=== PATIENT | male | born 1975 | race Caucasian/White ===

== ENCOUNTER 2017-04-12 07:20 | Inpatient (IN) | payer BC ==
[~2017-04-12] VITALS: Ht 185.4 cm; Wt 99.8 kg
[~2017-04-12 07:20] MED LIST: Z.0.PREVACID30 MG PO
[2017-04-12] MEDS ORDERED: SODIUM CHLORIDE 0.9% 1000ML 1,000 ML IV STA (07:59)
[2017-04-12 08:24] LABS: BASOPHILS # (AUTO) 0.1 (0.0-0.1); BASOPHILS % 0.6 % (0.0-1.0); HEMATOCRIT 40.6 % (38.2-49.6); HEMOGLOBIN 13.4 g/dL (14.0-18.0); LYMPHOCYTES # (AUTO) 0.3 (1.0-3.2); LYMPHOCYTES % 1.3 % (18.0-39.1); MEAN CORPUSCULAR HEMOGLOBIN 28.5 pg (28-32); MEAN CORPUSCULAR VOLUME 86.4 fL (81-99); MONOCYTES # (AUTO) 0.9 (0.2-0.8); MONOCYTES % 3.9 % (4.4-11.3); NEUTROPHILS # (AUTO) 21.9 (2.1-6.9); NEUTROPHILS % 93.1 % (38.7-80.0); PLATELET COUNT 264 x10e3/uL (140-360)
[2017-04-12 08:39] LABS: ANION GAP 13.8 mmol/L (8-16); BLOOD UREA NITROGEN 15 mg/dL (7-26); BUN/CREATININE RATIO 16 (6-25); CALCIUM 8.3 mg/dL (8.4-10.2); CARBON DIOXIDE 26 mmol/L (22-29); CHLORIDE 97 mmol/L (98-107); CREATININE, SERUM 0.91 mg/dL (0.72-1.25); EST GLOMERULAR FILTRATION RATE > 60 ML/MIN (60-); GLUCOSE 110 mg/dL (74-118); POTASSIUM 3.8 mmol/L (3.5-5.1); SODIUM 133 mmol/L (136-145)
--- NOTE | 2017-04-12 08:54 | Diagnostic Imaging Report ---
PROCEDURE: X-RAY CHEST, TWO VIEWS COMPARISON: None. INDICATIONS: FLULIKE SYMPTOMS FINDINGS: LUNGS: Patchy left perihilar opacity and a right middle lobe opacity compatible with multifocal pneumonia. PLEURA: No effusions or pneumothorax. HEART \T\ MEDIASTINUM: The heart is within normal size-limits. BONES \T\ SOFT TISSUES: No acute findings. CONCLUSION: Multifocal pneumonia. Edson Morrow D.O. Dictated by: Edson Morrow D.O. on 04/12/2017 at 9:02 Electronically approved by: Edson Morrow D.O. on 04/12/2017 at 9:02
[2017-04-12 09:07] LABS: STREPTOCOCCUS GRP A ANTIGEN POSITIVE (NEGATIVE)
[2017-04-12 09:23] LABS: INFLUENZAE A&B ANTIGEN (RAPID) NEGATIVE (NEGATIVE)
[2017-04-12] MEDS: AZITHROMYCIN 500MG/SOD CHL 0.9% 250ML BAG IV SCH (09:38)
[2017-04-12] MEDS: CEFTRIAXONE SOD 1 GM VIAL IV SCH ×2 (09:38→21:59)
[2017-04-12] MEDS: SODIUM CHLORIDE 0.9% 1000ML 1,000 ML IV SCH ×2 (09:38→20:21)
[2017-04-12 09:58] LABS: BAND NEUTROPHILS % (MANUAL) 27 %; LYMPHOCYTES % (MANUAL) 1 % (19-48); METAMYELOCYTES % (MANUAL) 2 % (0-0); MONOCYTES % (MANUAL) 3 % (3.4-9.0); NEUTROPHILS % (MANUAL) 67 % (40-74)
[2017-04-12 09:59] LABS: ANISOCYTOSIS SLIGHT; PLATELET ESTIMATE ADEQUATE; PLATELET MORPHOLOGY COMMENT NORMAL; RBC MORPHOLOGY COMMENT NORMAL
[2017-04-12] MEDS ORDERED: ACETAMINOPHEN 1000 MG/100 ML IV STA ×2 (10:15→10:59)
[2017-04-12] MEDS ORDERED: BENZONATATE 100 MG CAP PO PRN (10:45)
[2017-04-12] MEDS: OSELTAMIVIR PHOSPHATE 75 MG CAP PO SCH ×2 (10:59→17:00)
[2017-04-12] MEDS: ALBUTEROL/IPRATROPIUM 3 ML NEB NEB PRN ×2 (11:12→17:00)
[2017-04-12] MEDS ORDERED: ACETAMINOPHEN 1000 MG/100 ML IV PRN (12:45)
[2017-04-12] MEDS: FAMOTIDINE 20 MG TAB PO SCH (16:30)
[2017-04-12 20:00] VITALS: BP 136/74
[2017-04-13] VITALS: BP 124/69
[2017-04-13] MEDS: ALBUTEROL/IPRATROPIUM 3 ML NEB NEB PRN ×3 (00:30→15:15)
[2017-04-13 04:00] VITALS: BP 139/83
[2017-04-13] MEDS: SODIUM CHLORIDE 0.9% 1000ML 1,000 ML IV SCH ×3 (05:43→21:49)
[2017-04-13 06:52] LABS: BASOPHILS # (AUTO) 0.1 (0.0-0.1); BASOPHILS % 0.3 % (0.0-1.0); EOSINOPHILS # (AUTO) 0.2 (0.0-0.4); EOSINOPHILS % 0.8 % (0.0-6.0); HEMATOCRIT 38.8 % (38.2-49.6); HEMOGLOBIN 12.8 g/dL (14.0-18.0); LYMPHOCYTES # (AUTO) 1.1 (1.0-3.2); LYMPHOCYTES % 4.5 % (18.0-39.1); MEAN CORPUSCULAR HEMOGLOBIN 28.7 pg (28-32); MONOCYTES % 4.2 % (4.4-11.3); NEUTROPHILS # (AUTO) 20.7 (2.1-6.9); NEUTROPHILS % 89.2 % (38.7-80.0); PLATELET COUNT 270 x10e3/uL (140-360); RED BLOOD COUNT 4.46 x10e6/uL (4.3-5.7); RED CELL DISTRIBUTION WIDTH 14.4 % (11.7-14.4)
[2017-04-13 07:17] LABS: ANION GAP 13.8 mmol/L (8-16); BLOOD UREA NITROGEN 12 mg/dL (7-26); BUN/CREATININE RATIO 15 (6-25); CALCIUM 8.5 mg/dL (8.4-10.2); CARBON DIOXIDE 24 mmol/L (22-29); CHLORIDE 103 mmol/L (98-107); CREATININE, SERUM 0.81 mg/dL (0.72-1.25); EST GLOMERULAR FILTRATION RATE > 60 ML/MIN (60-); GLUCOSE 100 mg/dL (74-118); POTASSIUM 3.8 mmol/L (3.5-5.1); SODIUM 137 mmol/L (136-145)
[2017-04-13 07:59] VITALS: BP 127/71
[2017-04-13] MEDS: OSELTAMIVIR PHOSPHATE 75 MG CAP PO SCH ×2 (08:30→17:00)
[2017-04-13] MEDS: CEFTRIAXONE SOD 1 GM VIAL IV SCH ×2 (08:30→21:15)
[2017-04-13] MEDS: FAMOTIDINE 20 MG TAB PO SCH ×2 (08:30→16:30)
[2017-04-13] MEDS: AZITHROMYCIN 500MG/SOD CHL 0.9% 250ML BAG IV SCH (10:00)
[2017-04-13 12:00] VITALS: BP 116/67
[2017-04-13 16:00] VITALS: BP 106/61
[2017-04-13 20:00] VITALS: BP 125/80
[2017-04-13] MEDS: ACETAMINOPHEN 325 MG TAB PO PRN (20:00)
[2017-04-14] VITALS: BP 121/72
[2017-04-14 04:00] VITALS: BP 140/87
[2017-04-14] MEDS: ACETAMINOPHEN 325 MG TAB PO PRN ×2 (06:17→20:04)
--- NOTE | 2017-04-14 07:04 | Diagnostic Imaging Report ---
EXAM: CHEST 2 VIEWS, PA and lateral DATE: 04/14/2017 7:00 AM Time stamp on exam: 0628 hours INDICATION: Flu, fever, weakness COMPARISON: PA and lateral view of the chest April 12, 2017 FINDINGS: LINES/TUBES: None LUNGS: Right middle lobe, lingular, and bilateral lower lobe consolidations. PLEURA: No effusions or pneumothorax. HEART AND MEDIASTINUM: Normal size and contour. BONES AND SOFT TISSUES: No acute findings. IMPRESSION: Stable multifocal pneumonia. Signed by: Dr. Salena Barron M.D. on 04/14/2017 7:00 AM
[2017-04-14 07:13] LABS: BASOPHILS # (AUTO) 0.1 (0.0-0.1); BASOPHILS % 0.3 % (0.0-1.0); EOSINOPHILS # (AUTO) 0.3 (0.0-0.4); EOSINOPHILS % 1.7 % (0.0-6.0); HEMATOCRIT 40.2 % (38.2-49.6); HEMOGLOBIN 13.2 g/dL (14.0-18.0); LYMPHOCYTES # (AUTO) 1.6 (1.0-3.2); LYMPHOCYTES % 8.7 % (18.0-39.1); MEAN CORPUSCULAR HEMOGLOBIN 28.3 pg (28-32); MEAN CORPUSCULAR HGB CONC 32.8 g/dL (31-35); MEAN CORPUSCULAR VOLUME 86.3 fL (81-99); MONOCYTES # (AUTO) 1.1 (0.2-0.8); MONOCYTES % 6.1 % (4.4-11.3); NEUTROPHILS # (AUTO) 15.3 (2.1-6.9); NEUTROPHILS % 82.1 % (38.7-80.0); PLATELET COUNT 307 x10e3/uL (140-360); RED BLOOD COUNT 4.66 x10e6/uL (4.3-5.7); RED CELL DISTRIBUTION WIDTH 14.5 % (11.7-14.4)
[2017-04-14 07:31] LABS: ANION GAP 11.9 mmol/L (8-16); BLOOD UREA NITROGEN 12 mg/dL (7-26); BUN/CREATININE RATIO 16 (6-25); CARBON DIOXIDE 25 mmol/L (22-29); CHLORIDE 105 mmol/L (98-107); CREATININE, SERUM 0.76 mg/dL (0.72-1.25); EST GLOMERULAR FILTRATION RATE > 60 ML/MIN (60-); GLUCOSE 90 mg/dL (74-118); POTASSIUM 3.9 mmol/L (3.5-5.1); SODIUM 138 mmol/L (136-145)
[2017-04-14 07:44] VITALS: BP 137/91
[2017-04-14] MEDS: FAMOTIDINE 20 MG TAB PO SCH ×2 (07:52→17:00)
[2017-04-14] MEDS: OSELTAMIVIR PHOSPHATE 75 MG CAP PO SCH ×2 (09:29→17:17)
[2017-04-14] MEDS: CEFTRIAXONE SOD 1 GM VIAL IV SCH ×2 (09:29→20:30)
[2017-04-14] MEDS: AZITHROMYCIN 500MG/SOD CHL 0.9% 250ML BAG IV SCH (09:29)
[2017-04-14] MEDS ORDERED: PNEUMOCOCCAL VACCINE POLYVALENT 23 MCG/0.5 ML VIAL IM ONE (10:15)
[2017-04-14] MEDS ORDERED: SODIUM CHLORIDE FLUSH 10 ML SYR INJ PRN (10:15)
[2017-04-14 11:26] VITALS: BP 128/83
[2017-04-14 15:52] VITALS: BP 136/82
[2017-04-14 22:11] VITALS: BP 120/68
[2017-04-15 00:52] VITALS: BP 127/87
[2017-04-15 04:00] VITALS: BP 151/52
[2017-04-15 07:38] LABS: BASOPHILS # (AUTO) 0.1 (0.0-0.1); BASOPHILS % 0.9 % (0.0-1.0); EOSINOPHILS # (AUTO) 0.5 (0.0-0.4); HEMATOCRIT 40.3 % (38.2-49.6); HEMOGLOBIN 13.3 g/dL (14.0-18.0); LYMPHOCYTES # (AUTO) 2.9 (1.0-3.2); LYMPHOCYTES % 19.1 % (18.0-39.1); MEAN CORPUSCULAR HEMOGLOBIN 28.5 pg (28-32); MEAN CORPUSCULAR VOLUME 86.3 fL (81-99); MONOCYTES # (AUTO) 1.4 (0.2-0.8); MONOCYTES % 9.1 % (4.4-11.3); NEUTROPHILS # (AUTO) 9.6 (2.1-6.9); NEUTROPHILS % 64.3 % (38.7-80.0); PLATELET COUNT 357 x10e3/uL (140-360); RED BLOOD COUNT 4.67 x10e6/uL (4.3-5.7); RED CELL DISTRIBUTION WIDTH 14.4 % (11.7-14.4)
[2017-04-15 07:46] VITALS: BP 146/95
[2017-04-15] MEDS: FAMOTIDINE 20 MG TAB PO SCH ×2 (08:15→17:01)
[2017-04-15] MEDS: AZITHROMYCIN 500MG/SOD CHL 0.9% 250ML BAG IV SCH (09:59)
[2017-04-15] MEDS: CEFTRIAXONE SOD 1 GM VIAL IV SCH ×2 (09:59→21:11)
[2017-04-15] MEDS: OSELTAMIVIR PHOSPHATE 75 MG CAP PO SCH ×2 (09:59→17:01)
[2017-04-15 10:55] LABS: ANISOCYTOSIS SLIGHT; BAND NEUTROPHILS % (MANUAL) 3 %; EOSINOPHILS % (MANUAL) 2 % (0-7); LYMPHOCYTES % (MANUAL) 18 % (19-48); METAMYELOCYTES % (MANUAL) 1 % (0-0); MONOCYTES % (MANUAL) 9 % (3.4-9.0); MYELOCYTES % (MANUAL) 1 % (0-0); NEUTROPHILS % (MANUAL) 62 % (40-74); PROMYELOCYTES % (MANUAL) 1 % (0-0); TOXIC GRANULATION SLIGHT
[2017-04-15 10:56] LABS: PLATELET ESTIMATE ADEQUATE; PLATELET MORPHOLOGY COMMENT NORMAL; POLYCHROMASIA FEW; RBC MORPHOLOGY COMMENT NORMAL
[2017-04-15 11:33] VITALS: BP 119/76
[2017-04-15 15:49] VITALS: BP 124/77
[2017-04-15 20:00] VITALS: BP 131/69
[2017-04-16 00:29] VITALS: BP 141/80
[2017-04-16 04:10] VITALS: BP 139/93
[2017-04-16 07:27] LABS: BASOPHILS % 0.3 % (0.0-1.0); EOSINOPHILS # (AUTO) 0.4 (0.0-0.4); EOSINOPHILS % 2.6 % (0.0-6.0); HEMATOCRIT 40.6 % (38.2-49.6); HEMOGLOBIN 13.5 g/dL (14.0-18.0); LYMPHOCYTES # (AUTO) 2.7 (1.0-3.2); LYMPHOCYTES % 18.3 % (18.0-39.1); MEAN CORPUSCULAR HEMOGLOBIN 28.7 pg (28-32); MEAN CORPUSCULAR HGB CONC 33.3 g/dL (31-35); MEAN CORPUSCULAR VOLUME 86.4 fL (81-99); MONOCYTES # (AUTO) 1.5 (0.2-0.8); MONOCYTES % 10.3 % (4.4-11.3); NEUTROPHILS # (AUTO) 9.1 (2.1-6.9); NEUTROPHILS % 62.3 % (38.7-80.0); PLATELET COUNT 380 x10e3/uL (140-360)
[2017-04-16 07:42] VITALS: BP 149/86
[2017-04-16] MEDS: CEFTRIAXONE SOD 1 GM VIAL IV SCH (08:15)
[2017-04-16] MEDS: FAMOTIDINE 20 MG TAB PO SCH (08:15)
[2017-04-16] MEDS: OSELTAMIVIR PHOSPHATE 75 MG CAP PO SCH (08:15)
[2017-04-16] MEDS ORDERED: FLUCONAZOLE 100 MG TAB PO SCH (09:00)
[2017-04-16] MEDS ORDERED: DIFLUCAN100 MG PO (10:28)
[2017-04-16] MEDS ORDERED: AMOXICILLIN500 MG PO (10:28)
[2017-04-16 10:53] LABS: ANISOCYTOSIS SLIGHT; EOSINOPHILS % (MANUAL) 1 % (0-7); LYMPHOCYTES % (MANUAL) 19 % (19-48); METAMYELOCYTES % (MANUAL) 1 % (0-0); MONOCYTES % (MANUAL) 10 % (3.4-9.0); MYELOCYTES % (MANUAL) 2 % (0-0); NEUTROPHILS % (MANUAL) 66 % (40-74)
[2017-04-16 10:54] LABS: PLATELET ESTIMATE ADEQUATE; PLATELET MORPHOLOGY COMMENT FEW LARGE; RBC MORPHOLOGY COMMENT NORMAL
--- NOTE | 2017-04-16 14:44 | Discharge Summary ---
DISCHARGE DIAGNOSES 1. Multifocal pneumonia, improving. 2. Influenza. HOSPITAL COURSE: Mr. Brown is a pleasant 41-year-old gentleman, new patient to the [facility] who was seen a few days prior to admission with complaints of cough and generalized malaise. At that time, he had a positive flu test. He was treated with oral Tamiflu. His symptoms worsened, he developed fever, and he came to the emergency department where he was found to have multifocal pneumonia. He denied any prior history except that of opioid dependency that is now being treated by psychiatry and he also does have history of vaping. He was admitted to the hospital. He was treated with supplemental oxygen, IV fluids, IV ceftriaxone, and IV Zithromax. At the time of admission, his white count was elevated at 25,000, his BUN and creatinine were normal, and x-rays were showing evidence of small infiltrates affecting both lung bases, the lingula, and the right middle lobe. The blood cultures were negative. The culture for the sputum came back positive for strep pneumonia which was uniformly sensitive to penicillin. He was kept in the hospital for a total of 5 days on IV antibiotics. The patient has steadily improved and he is tolerating the oral route and oral medications. At the time of discharge, his white cell count is 14,500 with a normal differential. He has been afebrile for over 72 hours. He is given prescription for amoxicillin 1 g 3 times a day for an additional 7 days. He is to follow up with his primary care physician. Job#: [id number] RIGOBERTO
== END 2017-04-16 10:30 | disposition home or self-care (01) | DRG 194 ==
LOC: ER 07:20 → ERHOLD 09:17 → MED/SURG3 15:20
PROVIDERS: ADMIT Internal Medicine; ATTEND Internal Medicine
DX: J13 Pneumonia due to Streptococcus pneumoniae (principal); F11.20 Opioid dependence, uncomplicated; J11.1 Influenza due to unidentified influenza virus with other respiratory manifestations
CPT/HCPCS: 36415; 71020; 80048; 83518; 83605; 85025; 87040; 87070; 87205; 87400; 90732; 93005; 94640; 99284; J0456; J0696; J7030

== ENCOUNTER 2022-01-14 07:03 | Emergency (ER) | payer BC ==
[~2022-01-14] VITALS: Ht 185.4 cm; Wt 99.8 kg
[~2022-01-14 07:03] MED LIST changes: +AMOXICILLIN500 MG PO; +DIFLUCAN100 MG PO
[2022-01-14 08:14] LABS: BASOPHILS % 0.3 % (0.0-1.0); EOSINOPHILS # (AUTO) 0.1 (0.0-0.4); EOSINOPHILS % 1.6 % (0.0-6.0); LYMPHOCYTES # (AUTO) 1.7 (1.0-3.2); LYMPHOCYTES % 22.9 % (18.0-39.1); MEAN CORPUSCULAR HEMOGLOBIN 27.4 pg (28-32); MEAN CORPUSCULAR HGB CONC 31.9 g/dL (31-35); MEAN CORPUSCULAR VOLUME 85.8 fL (81-99); MONOCYTES # (AUTO) 0.8 (0.2-0.8); MONOCYTES % 10.9 % (4.4-11.3); NEUTROPHILS # (AUTO) 4.8 (2.1-6.9); PLATELET COUNT 368 x10e3/uL (140-360); RED BLOOD COUNT 5.48 x10e6/uL (4.3-5.7); RED CELL DISTRIBUTION WIDTH 13.9 % (11.7-14.4)
[2022-01-14 08:29] LABS: ANION GAP 13.2 mmol/L (8-16); CALCIUM 9.5 mg/dL (8.4-10.2); CREATININE, SERUM 0.91 mg/dL (0.72-1.25); POTASSIUM 4.2 mmol/L (3.5-5.1)
== END 2022-01-14 08:42 | disposition home or self-care (01) ==
LOC: ER 07:11
DX: I10 Essential (primary) hypertension (principal); F32.A Depression, unspecified
CPT/HCPCS: 36415; 80048; 85025; 99283